=== PATIENT | female | born 1935 | race Caucasian/White ===

== ENCOUNTER 2016-06-20 21:37 | Emergency (ER) | payer BC, OTHER ==
[~2016-06-20] VITALS: Ht 157.5 cm; Wt 54.4 kg
[~2016-06-20 21:37] MED LIST: ASA81BEC PO; BRILINTA90 MG PO; CARVEDILOL3.125 MG PO; CLARITIN10 MG PO; COREG6.25 MG PO; COZAAR 50 MG TA50 M2 PO; CRESTOR10 MG PO; HYDRALAZINE 2525 MG PO; K-TAB10 MEQ PO; LANSOPRAZOLE30 MG PO; LASIX 20 MG TAB20 MG PO; NITROGLYCERIN0.4 MG SUBLING; NORVASC5 MG PO; PAXIL10 MG; PLAVIX 75 MG TA75 M1 PO; PREVACID30 MG PO; QVAR8.7 G1 INH; SYNTHROID100 MCG PO; TESSALON PERLE100 MG PO; TYLENOL325 MG PO; XANAX 0.25 MG0.25 MG PO; ZOCOR20 MG PO
[2016-06-20] MEDS ORDERED: AUGMENTIN 875-1 EACH PO (21:43)
[2016-06-20] MEDS ORDERED: PREDNISONE 5 MG5 M1 PO (21:44)
[2016-06-20] MEDS ORDERED: OIL OF OREGAN1500 MG PO (21:44)
== END 2016-06-20 23:19 | disposition home or self-care (01) ==
LOC: ER 21:37
DX: S00.93XA Contusion of unspecified part of head, initial encounter (principal); I10 Essential (primary) hypertension; E78.5 Hyperlipidemia, unspecified; K21.9 Gastro-esophageal reflux disease without esophagitis; E03.9 Hypothyroidism, unspecified; Z90.49 Acquired absence of other specified parts of digestive tract; Z95.9 Presence of cardiac and vascular implant and graft, unspecified; W18.30XA Fall on same level, unspecified, initial encounter; Y93.E5 Activity, floor mopping and cleaning; Y92.009 Unspecified place in unspecified non-institutional (private) residence as the place of occurrence of the external cause; Y99.9 Unspecified external cause status